=== PATIENT | female | born 1985 | race African-American/Black ===

== ENCOUNTER 2018-05-28 10:30 | Emergency (ER) | payer OTHER ==
[~2018-05-28] VITALS: Ht 162.6 cm; Wt 65.9 kg
[~2018-05-28 10:30] MED LIST: LORA1TAB3 PO; OXYC10 PO; [UNRECOGNIZED DRUG - OTHER]; [UNRECOGNIZED DRUG - OTHER] PO
[2018-05-28] MEDS ORDERED: PRED5 PO (10:53)
[2018-05-28] MEDS ORDERED: AZAT50TA35 PO (10:53)
[2018-05-28] MEDS ORDERED: HYDR200T4 PO (10:53)
[2018-05-28] MEDS ORDERED: OxyCODONE HCL 10 MG ER TABLET PO ONE (13:00)
[2018-05-28 13:33] VITALS: BP 148/96
== END 2018-05-28 14:10 | disposition home or self-care (01) ==
LOC: EMS 10:31
DX: M25.462 Effusion, left knee (principal); M25.561 Pain in right knee; M25.562 Pain in left knee; F41.9 Anxiety disorder, unspecified; F12.90 Cannabis use, unspecified, uncomplicated; F17.210 Nicotine dependence, cigarettes, uncomplicated
CPT/HCPCS: 99406

== ENCOUNTER 2020-01-04 23:48 | Emergency (ER) | payer OTHER ==
[~2020-01-04] VITALS: Ht 162.6 cm; Wt 52.3 kg
[~2020-01-04 23:48] MED LIST changes: +AZAT50TA35 PO; +HYDR200T4 PO; +LORA-1000 PO; -LORA1TAB3 PO; -OXYC10 PO; +OXYC10TA59 PO; +PRED5 PO; -[UNRECOGNIZED DRUG - OTHER]; -[UNRECOGNIZED DRUG - OTHER] PO
[2020-01-05] MEDS ORDERED: SODIUM CHLORIDE 0.9% 1,000 ML IV ONE (00:30)
[2020-01-05] MEDS ORDERED: ONDANSETRON HCL 4 MG/2 ML VIAL IVP ONE (00:30)
[2020-01-05] MEDS ORDERED: KETOROLAC TROMETHAMINE 30 MG/ML VIAL IVP ONE (00:30)
[2020-01-05 00:32] LABS: BASOPHILS % (AUTO) 0.5 % (0.0-2.0); EOSINOPHILS % (AUTO) 0.9 % (1.0-6.0); HEMOGLOBIN 10.2 g/dL (12.0-16.0); LYMPHOCYTES # (AUTO) 1.8 K/uL (1.0-4.8); LYMPHOCYTES % (AUTO) 21.8 % (22.0-44.0); MEAN CORPUSCULAR HEMOGLOBIN 23.6 pg (26.0-34.0); MEAN CORPUSCULAR HGB CONC 31.7 G/dL (31.0-37.0); MEAN CORPUSCULAR VOLUME 74 fL (80-100); MONOCYTES # (AUTO) 0.3 K/uL (0.1-1.0); MONOCYTES % (AUTO) 3.4 % (2.0-9.0); NEUTROPHILS # (AUTO) 6.2 K/uL (1.8-7.7); NEUTROPHILS % (AUTO) 73.4 % (40.0-70.0); PLATELET COUNT (AUTO) 506 K/uL (150-450); RED BLOOD CELL COUNT(AUTO) 4.31 MIL/uL (4.00-5.20); RED CELL DISTRIBUTION WIDTH 18.8 % (11.5-14.5)
[2020-01-05 00:41] LABS: ANION GAP 6 mmol/L (8-16); CALCIUM, TOTAL 9.2 mg/dL (8.8-10.5); CARBON DIOXIDE 29 mmol/L (22-29); CHLORIDE 100 mmol/L (98-107); GLOMERULAR FILTR. RATE CALC > 60 mL/min (>60); GLUCOSE,RANDOM 103 mg/dL (70-110); POTASSIUM 3.5 mmol/L (3.5-5.1); SODIUM SERUM 135 mmol/L (136-145); UREA NITROGEN, BLOOD 15 mg/dL (7-18)
[2020-01-05 00:52] LABS: ALANINE AMINOTRANSFERASE 12 U/L (12-78); ALBUMIN 3.4 g/dL (3.4-5.0); ALKALINE PHOSPHATASE 48 U/L (46-116); ASPARTATE AMINOTRANSFERASE 16 U/L (15-37); BILIRUBIN,TOTAL 0.2 mg/dL (0.1-1.0); HCG,QUANTITATIVE < 1 mIU/mL (0-6); LIPASE 93 U/L (73-393); TOTAL PROTEIN, SERUM 9.6 g/dL (6.4-8.2)
[2020-01-05] MEDS ORDERED: IOVERSOL 350 MG/ML 100 ML VIAL ONE (00:57)
[2020-01-05] MEDS ORDERED: SODIUM CHLORIDE 0.9% 100 ML ONE (00:57)
[2020-01-05 02:17] LABS: APPEARANCE,URINE CLOUDY (CLEAR); BILIRUBIN,URINE NEGATIVE (NEGATIVE); GLUCOSE, URINE (UA) NEGATIVE (NEGATIVE); KETONES,URINE NEGATIVE (NEGATIVE); LEUKOCYTE ESTERASE ,URINE SMALL (NEGATIVE); NITRATE,URINE NEGATIVE (NEGATIVE); OCCULT BLOOD,URINE NEGATIVE (NEGATIVE); PROTEIN,URINE TRACE (NEGATIVE); UROBILINOGEN,URINE 0.2 mg/dL (<=1.0)
[2020-01-05 02:27] LABS: BACTERIA,URINE Rare /HPF (None Seen); RBC,URINE 0-2 /HPF (0-2); SQUAMOUS EPITHELIAL CELL,UR Many /LPF (None Seen)
[2020-01-05 04:10] VITALS: BP 119/80
== END 2020-01-05 04:15 | disposition home or self-care (01) ==
LOC: EMS 23:48
DX: M32.9 Systemic lupus erythematosus, unspecified (principal); R10.32 Left lower quadrant pain; M79.89 Other specified soft tissue disorders; F41.9 Anxiety disorder, unspecified; F17.210 Nicotine dependence, cigarettes, uncomplicated; F12.90 Cannabis use, unspecified, uncomplicated; G89.29 Other chronic pain
CPT/HCPCS: 36415; 74177; 80053; 81001; 83690; 84702; 85025; 96374; 96375; 99285; J1885; J2405; J7030; J7050; Q9967